=== PATIENT | male | born 1985 | race Caucasian/White ===

== ENCOUNTER 2016-10-04 11:40 | Emergency (ER) | payer MEDICARE, OTHER ==
[2016-10-04] MEDS ORDERED: Clindamycin Phosphate 900 MG in Sodium Chloride 0.9% 100 ML IV ONE (13:04)
[2016-10-04] MEDS ORDERED: Iopamidol 612 MG/ML 100 ML Bottle IVPUSH ONE (13:13)
[2016-10-04] MEDS ORDERED: Sodium Chloride 0.9% 100 ML IV ONE (13:13)
[2016-10-04] MEDS ORDERED: Sodium Chloride 0.9% 1,000 ML IV SCH (13:15)
--- NOTE | 2016-10-04 13:28 | EDM.PDOC ---
ED HPI GENERAL MEDICAL PROBLEM - General Chief Complaint: Skin Complaint Stated Complaint: RT ANKLE Time Seen by Provider: 10/04/16 11:41 Source of Information: Reports: Patient, RN, RN Notes Reviewed History Limitations: Reports: No Limitations - History of Present Illness INITIAL COMMENTS - FREE TEXT/NARRATIVE: Patient presents to the emergency room at [facility] with concerns of right foot/ankle swelling, pain, redness. The patient states that he started having right foot pain about 2 days ago. The patient states yesterday morning he noticed significant swelling redness and tenderness of the right foot and ankle. The patient denies any recent injury or trauma. No bifid surgeries. The patient states that it is painful to ambulate. The patient states most of his pain is centered around the right lateral malleolus. Patient denies any insect/ vector bites. no skin integrity problems. Patient does not know why he is having his current symptoms. Onset Date: 10/02/16 Duration: Getting Worse Location: Reports: Lower Extremity, Right Quality: Reports: Burning Severity: Moderate Left Feet Pain Score (Numeric/FACES): 10 - Related Data Allergies Allergy/AdvReac Type Severity Reaction Status Date / Time lisinopril Allergy unkown Verified 03/16/14 09:16 Home Meds: Home Meds Clindamycin HCl 300 mg PO TID #27 capsule 10/04/16 [Rx] ED ROS GENERAL - Review of Systems Review Of Systems: See Below Constitutional: Denies: Fever, Chills, Weakness Respiratory: Denies: Shortness of Breath, Cough Cardiovascular: Denies: Chest Pain, Palpitations Musculoskeletal: Reports: Foot Pain, Joint Pain, Joint Swelling Skin: Reports: Erythema Neurological: Reports: No Symptoms. Denies: Numbness, Paresthesia (significant swelling of right foot; erythema; very tender to palpation; warm to touch), Tingling ED EXAM, SKIN/RASH Exam: See Below Exam Limited By: No Limitations General Appearance: Alert, No Apparent Distress Respiratory/Chest: No Respiratory Distress, Lungs Clear, Normal Breath Sounds Cardiovascular: Regular Rate, Rhythm, Other (+3 dependent edema right foot) Peripheral Pulses: 2+: Radial (L), Radial (R) Extremities: Pedal Edema (+3 dependent edema right foot) Neurological: Alert, Oriented Skin: Dry, Intact, Normal Color, No Rash, Erythema Location, Skin: Lower Extremity, Right Associated features: Warmth, Tenderness, Wwelling Course - Vital Signs Last Recorded V/S: Last Vital Signs Temp 36.6 C 10/04/16 11:50 Pulse 97 10/04/16 11:50 Resp 16 10/04/16 11:50 BP 155/98 H 10/04/16 11:50 Pulse Ox 98 10/04/16 11:50 - Orders/Labs/Meds Orders: Active Orders 24 hr Category Date Time Status Lower Extremity w Cont Rt [CT] Stat Exams 10/04/16 12:56 Taken CULTURE BLOOD [BC] Stat Lab 10/04/16 13:00 Results CULTURE BLOOD [BC] Stat Lab 10/04/16 13:15 Received Sodium Chloride 0.9% [Normal Saline] 1,000 ml Med 10/04/16 13:15 Active IV ASDIRECTED Blood Culture x2 Reflex Set [OM.PC] Stat Oth 10/04/16 13:01 Ordered Medication Orders Sodium Chloride (Normal Saline) 1,000 mls @ 999 mls/hr IV ASDIRECTED CHAPIN Last Admin: 10/04/16 13:23 Dose: 999 mls/hr Labs: Laboratory Tests 10/04/16 10/04/16 Range/Units 13:15 13:15 WBC 11.5 H (4.0-10.0) x10^3/uL RBC 4.93 (4.5-6.0) x10^6/uL Hgb 14.8 (14.0-18.0) g/dL Hct 42.5 (40.0-52.0) % MCV 86.2 (78.0-93.0) fL MCH 30.0 (26.0-32.0) pg MCHC 34.8 (32.0-36.0) g/dL RDW Coeff of Mayi 12.8 (10.0-15.0) % Plt Count 270 (130-400) x10^3/uL Neut % (Auto) 69.8 (50.0-80.0) % Lymph % (Auto) 17.9 L (25.0-50.0) % Imperial % (Auto) 10.3 (2.0-11.0) % Eos % (Auto) 1.5 (0.0-4.0) % Baso % (Auto) 0.5 (0.2-1.2) % ESR 10 (0-16) mm/hr Sodium 142 (136-145) mmol/L Potassium 4.2 (3.5-5.1) mmol/L Chloride 105 (98-107) mmol/L Carbon Dioxide 29 (21-32) mmol/L BUN 15 (7-18) mg/dL Creatinine 1.1 (0.70-1.30) mg/dL Est Cr Clr Drug Dosing TNP Estimated GFR (MDRD) > 60 Glucose 95 (74-106) mg/dL Calcium 8.6 (8.5-10.1) mg/dL C-Reactive Protein 1.0 H (<=0.9) mg/dL Meds: Medications Generic Name Dose Route Start Last Admin Trade Name Freq PRN Reason Stop Dose Admin Sodium Chloride 1,000 mls @ 999 mls/hr 10/04/16 13:15 10/04/16 13:23 Normal Saline IV 999 mls/hr ASDIRECTED CHAPIN Administration Discontinued Medications Generic Name Dose Route Start Last Admin Trade Name Freq PRN Reason Stop Dose Admin Clindamycin Phosphate 900 mg/ 106 mls @ 200 mls/hr 10/04/16 13:04 10/04/16 13 :22 Sodium Chloride IV 10/04/16 13:35 200 mls/hr ONETIME ONE Administration Sodium Chloride 100 mls @ 2 mls/sec 10/04/16 13:13 Normal Saline IV 10/04/16 13:14 ONETIME ONE Iopamidol 100 ml 10/04/16 13:13 Isovue-300 (61%) IVPUSH 10/04/16 13:14 ONETIME ONE Tramadol HCl 50 mg 10/04/16 13:49 10/04/16 14:00 Ultram PO 10/04/16 13:50 50 mg ONETIME ONE Administration Departure - Departure Time of Disposition: 14:59 Disposition: Home, Self-Care 01 Condition: good Clinical Impression: Cellulitis of foot, right - Discharge Information Prescriptions: Clindamycin HCl 300 mg PO TID #27 capsule Instructions: Cellulitis, Adult Forms: ED Department Discharge Additional Instructions: 1. Stay well hydrated and rest 2. Take antibiotics for the full coarse, even if you are feeling better 3. Apply ice to right foot several times a day; keep elevated when seated 4. May alternate Tylenol/Advil as needed for pain 5. Recommend follow up with your Primary provider for a recheck to make sure swelling is better - Problem List Review Problem List Initiated/Reviewed/Updated: Yes - My Orders Last 24 Hours: My Active Orders 10/04/16 12:56 Lower Extremity w Cont Rt [CT] Stat 10/04/16 13:00 CULTURE BLOOD [BC] Stat 10/04/16 13:01 Blood Culture x2 Reflex Set [OM.PC] Stat 10/04/16 13:15 CULTURE BLOOD [BC] Stat Sodium Chloride 0.9% [Normal Saline] 1,000 ml IV ASDIRECTED - Assessment/Plan Last 24 Hours: My Active Orders 10/04/16 12:56 Lower Extremity w Cont Rt [CT] Stat 10/04/16 13:00 CULTURE BLOOD [BC] Stat 10/04/16 13:01 Blood Culture x2 Reflex Set [OM.PC] Stat 10/04/16 13:15 CULTURE BLOOD [BC] Stat Sodium Chloride 0.9% [Normal Saline] 1,000 ml IV ASDIRECTED
[2016-10-04 13:37] LABS: CHLORIDE,CL 105 mmol/L (98-107); SODIUM,NA 142 mmol/L (136-145)
[2016-10-04] MEDS ORDERED: traMADol 50 MG Tab PO ONE (13:49)
[2016-10-04 14:04] VITALS: BP 155/98
[2016-10-04] MEDS ORDERED: Take Home: Acetaminophen/HYDROcodone 325-5 MG, 5 Tab Pack PO ONE (15:01)
== END 2016-10-04 15:20 | disposition home or self-care (01) ==
LOC: VM.ED 11:40
DX: L03.115 Cellulitis of right lower limb (principal); Z88.8 Allergy status to other drugs, medicaments and biological substances
CPT/HCPCS: 36415; 73701; 80048; 85025; 85652; 86140; 87040; 96361; 96365; 99284; A9270; J7030; J7050; Q9967; S0077